=== PATIENT | female | born 1995 | race Caucasian/White ===

== ENCOUNTER 2018-11-07 14:44 | Emergency (ER) | payer OTHER ==
[~2018-11-07] VITALS: Ht 154.9 cm; Wt 59.0 kg
[~2018-11-07 14:44] MED LIST: AVPAK AZITHROM250 MG PO; PREDNISONE50 MG PO; PROVENTIL HFA6.7 GM INH
[2018-11-07] MEDS ORDERED: ZITHROMAX250 MG PO (16:47)
[2018-11-07] MEDS ORDERED: DELTASONE20 M1 PO (16:47)
== END 2018-11-07 16:58 | disposition home or self-care (01) ==
LOC: ED 14:44
DX: J45.901 Unspecified asthma with (acute) exacerbation (principal)